=== PATIENT | male | born 1965 ===

== ENCOUNTER → 2020-02-05 15:00 | Outpatient (REF) | payer OTHER, SELFPAY | LOC: ANHLAB 15:00 | PROVIDERS: PCP Internal Medicine; Visit Provider Surgery Plastic and Reconstructive Surgery | DX: R22.9 Localized swelling, mass and lump, unspecified (principal); D23.112 Other benign neoplasm of skin of right lower eyelid, including canthus | CPT/HCPCS: 88304 ==